=== PATIENT | male | born 1950 | race Caucasian/White ===

== ENCOUNTER 2016-10-23 10:22 | Inpatient (IN) | payer BC ==
[2016-10-15 12:19] LABS: HEMATOCRIT 45.1 % (40.0-51.0); HEMOGLOBIN 16.4 g/dL (13.6-17.8)
--- NOTE | ~2016-10-23 | OP ---
Record Of Operation [facility] [address] [place]. [address] NAME: BETZAIDA OSCAR : 54 STATUS : ADM IN PAT#: [id number] AGE: 66 ADM/REG DATE : 10/23/16 MR#: [id number] REPORT SERV DATE: 10/23/16 DICTATED BY: BA DICK DATE: 10/23/16 REPORT STATUS : Draft TRANSCRIBED BY: MODL DATE: 10/23/16 DATE OF PROCEDURE: 10/23/2016 PREOPERATIVE DIAGNOSIS: Prostate cancer. POSTOPERATIVE DIAGNOSIS: Prostate cancer. PROCEDURE: Robotic-assisted laparoscopic radical prostatectomy with right laparoscopic pelvic lymph node dissection. SURGEON: Ba Dick M.D. BLOW MACHINE TENDER STARCH SPRAYING: DIVINA Diana. ANESTHESIA: General. PREOPERATIVE INDICATIONS: This is a 66-year-old male with a positive family history of prostate cancer, who presented with an increase in his PSA from 0.5 to 2.9. This was associated with an abnormal digital rectal exam. Ultrasound-guided biopsies identified a Kirby 8, 4+4 prostate cancer involving six cores on the right and a Protivin 7, 3+4 prostate cancer involving a single core at the left apex. Staging studies were negative. After reviewing his options, risks, alternatives, and benefits, he elected surgical management with a robotic approach. DESCRIPTION OF OPERATIVE PROCEDURE: Following adequate general anesthesia, the patient was placed in a modified lithotomy position, well padded and secured to the table, and placed in a steep Trendelenburg position. He was noted to be safely secured to the table and was returned to a level position where he was prepped and draped in the usual sterile fashion. A 16-Vietnamese catheter was placed into the bladder from the operative field. A pneumoperitoneum was achieved with a Veress needle. A 12-mm port was placed in the left upper quadrant with the Optiview system. The camera was placed into the abdomen. The abdomen was inspected and there were no abnormal findings. Under direct vision, the four robotic ports were placed as well as a left lower quadrant 5-mm port. The patient was returned to a Trendelenburg position and docked to the robot. The bladder was taken down by incising laterally along the median umbilical ligaments to the level of vas deferens bilaterally with electrocautery daniel. The space of Retzius was developed bluntly. Fat was dissected off the anterior surface of the prostate sharply and sent for separate pathology review in view of his high risk disease. The endopelvic fascia was incised bilaterally and levator muscle swept off the lateral surface of the prostate bilaterally. The dorsal vein complex was dissected out and controlled and divided with an endovascular FRANK stapler. The bladder neck was incised at its junction with the base of the prostate. The bladder was entered. The catheter was grasped with a ProGrasp grasper and used for anterior retraction on the prostate. The posterior bladder neck was developed and incised with electrocautery Record Of Operation [facility] [address] [facility] [place]. [address] NAME: BETZAIDA OSCAR : 54 STATUS : ADM IN PAT#: [id number] AGE: 66 ADM/REG DATE : 10/23/16 MR#: [id number] REPORT SERV DATE: 10/23/16 DICTATED BY: BA DICK DATE: 10/23/16 REPORT STATUS : Draft TRANSCRIBED BY: MODL DATE: 10/23/16 ronald. A plane was bluntly developed between the prostate and posterior bladder neck. Anterior Denonvilliers fascia was incised to expose the vas deferens and seminal vesicles. The vas deferens were dissected out bluntly, divided sharply and the ends of the vas deferens grasped with the ProGrasp grasper for additional anterior retraction on the prostate. The seminal vesicles were dissected out bluntly. Their blood supply controlled with interlocking clips and then divided sharply at their base. The bladder neck was inspected and did require some minor reconstruction with two [id number] 3-0 Vicryl sutures at the 3 and 9 o'clock position taking care to avoid the ureteral orifices. Posterior Denonvilliers fascia was incised and a plane was bluntly developed between the rectum and prostate. The levator fascia was incised bilaterally. The left neurovascular bundle was bluntly and easily dissected away from the posterolateral surface of the prostate. The right neurovascular bundle was partially resected by incising along the length of the fibers and sparing the lateral portion of the bundle and sacrificing the medial portion of the bundle in view of his high risk palpable disease. The pedicles were controlled with interlocking clips and divided sharply with the round-tip scissors. The urethra was dissected out with the round-tip scissors. The dorsal vein complex was secured to the pubic periosteum with a [id number] 2-0 Monocryl suture. The urethra was then divided sharply at the prostatourethral junction. The catheter was withdrawn. The posterior urethra was divided as well as remaining apical attachments and the prostate was freed. A right laparoscopic pelvic lymph node dissection was performed with the margins of dissection being the anterior surface of the external iliac vein, the bifurcation of the external and internal iliac artery, and the pelvic sidewall both anterior and posterior to the obturator nerve. Margins were controlled with interlocking clips and the specimen divided sharply with a round-tip scissors. The rashaad specimen and prostate were placed in an EndoCatch sac and placed out of the view of the operative field. The pelvis was irrigated with sterile water and antibiotic solution. It was carefully inspected. There was excellent hemostasis and no apparent rectal injury. The posterior Denonvilliers fascia was then reapproximated to the posterior urethral plate with a running 3-0 V-Loc suture in a Tian stitch fashion. The urethrovesical anastomosis was then performed with a running 3-0 V-Loc suture over a 20-Vietnamese catheter. The balloon was filled with 10 mL of sterile water. The bladder was irrigated with sterile water. There was a watertight anastomosis. A 19 Manan drain was passed through one of the robotic ports and placed into the pelvis. The port was removed, its exit site demonstrating good hemostasis. The drain was fixed to the skin with 2-0 Prolene suture. The patient was de-docked from the robot and returned to a level position. The remaining trocars were removed under direct vision. Their exit sites demonstrating good hemostasis. The periumbilical port was used to guide a transverse fascial incision to allow intact retrieval of the specimen. This was closed with six interrupted #1 Ethibond sutures. The periumbilical wound and port sites were irrigated with antibiotic solution and skin edges reapproximated with skin clips. The drain was left to grenade suction. The catheter was left to gravity drainage. Bandages were applied and the procedure was concluded. He was awakened from his anesthesia, had tolerated it well and transferred to the recovery room in satisfactory condition. Record Of Operation [facility] [address] [facility]. [address] NAME: BETZAIDA OSCAR : 54 STATUS : ADM IN PAT#: [id number] AGE: 66 ADM/REG DATE : 10/23/16 MR#: [id number] REPORT SERV DATE: 10/23/16 DICTATED BY: BA DICK DATE: 10/23/16 REPORT STATUS : Draft TRANSCRIBED BY: YING DATE: 10/23/16 WM/YING Ba Dick M.D. / [id number] CC: Ba Dick M.D.
[~2016-10-23 10:22] MED LIST: FLOMAX4 PO; MOBIC PO; PRILOSEC40 MG PO
[2016-10-23 16:51] LABS: HEMATOCRIT 42.5 % (40.0-51.0); HEMOGLOBIN 15.7 g/dL (13.6-17.8)
[2016-10-23 17:01] LABS: CREATININE 1.08 MG/DL (0.70-1.30); POTASSIUM, SERUM 3.7 MMOL/L (3.5-5.3)
== END 2016-10-24 13:13 | disposition home or self-care (01) | DRG 708 ==
LOC: SDC/OF 10:22 → PACU 16:31 → 4SO 19:06
PROVIDERS: Urology
PROC: 07BH4ZZ Excision of Right Inguinal Lymphatic, Percutaneous Endoscopic Approach (ICD-10-PCS; 2016-10-23)
PROC: 8E0W4CZ Robotic Assisted Procedure of Trunk Region, Percutaneous Endoscopic Approach (ICD-10-PCS; 2016-10-23)
PROC: 0VT04ZZ Resection of Prostate, Percutaneous Endoscopic Approach (ICD-10-PCS; principal; 2016-10-23 12:30)
DX: C61 Malignant neoplasm of prostate (principal); F41.9 Anxiety disorder, unspecified; Z80.42 Family history of malignant neoplasm of prostate; K21.9 Gastro-esophageal reflux disease without esophagitis; M17.0 Bilateral primary osteoarthritis of knee; M47.9 Spondylosis, unspecified; Z87.891 Personal history of nicotine dependence
CPT/HCPCS: 80048; 82565; 84132; 85014; 85018; 88304; 88305; 88307; 88309; 93005; A9270-GY; J0690; J1885; J2250; J2710; J2795; J3010